=== PATIENT | female | born 1985 | race Caucasian/White ===

== ENCOUNTER 2022-02-13 08:50 | Day surgery (SDC) | payer MEDICAID ==
[~2022-02-13 08:50] MED LIST: Acetaminophen 1,000 MG in Premix Bag 1 BAG IV SCH; Albuterol 0.083% 2.5 MG/3 ML Neb Soln NEB PRN; HYDROmorphone 1 MG/ML Syringe IVPUSH PRN; Lactated Ringers 1,000 ML IV SCH; Metoclopramide 10 MG/2 ML SDV IVPUSH PRN; Morphine 2 MG/ML SYRINGE IVPUSH PRN; Naloxone 0.4 MG/ML SDV IVPUSH PRN; Ondansetron 4 MG/2 ML SDV IVPUSH PRN; Pregabalin 75 MG Cap PO SCH; Scopolamine 1.5 MG Transdermal Patch TOP ONE; Scopolamine 1.5 MG Transdermal Patch TRDERM PRN; ceFAZolin 2 GM in Premix Bag 1 BAG IV SCH; fentaNYL 50 MCG/ML SDV IVPUSH PRN
[2022-02-13] MEDS ORDERED: Sugammadex Sodium 200 MG/2 ML VIAL ONE (08:59)
[2022-02-13] MEDS ORDERED: Rocuronium Bromide 50 MG/5 ML Syringe ONE (08:59)
[2022-02-13] MEDS ORDERED: Lidocaine 2% 5 ML SDV ONE (08:59)
[2022-02-13] MEDS ORDERED: fentaNYL 100 MCG/2 ML SDV ONE (08:59)
[2022-02-13] MEDS ORDERED: Ketorolac 30 MG/ML SDV ONE (08:59)
[2022-02-13] MEDS ORDERED: Ondansetron 4 MG/2 ML SDV ONE (08:59)
[2022-02-13] MEDS ORDERED: Dexamethasone 4 MG/ML 5 ML MDV ONE (08:59)
[2022-02-13] MEDS ORDERED: Midazolam 1 MG/ML 2 ML SDV ONE (08:59)
[2022-02-13] MEDS ORDERED: Propofol 200 MG/20 ML SDV ONE (08:59)
[2022-02-13] MEDS ORDERED: Bupivacaine 0.25% 10 ML SDV ONE (10:06)
[2022-02-13] MEDS ORDERED: Bupivacaine 0.25% 30 ML SDV ONE (10:06)
[2022-02-13] MEDS ORDERED: Bupivacaine 0.5% 30 ML SDV ONE (10:12)
[2022-02-13] MEDS ORDERED: ceFAZolin 2 GM Vial ONE (10:15)
[2022-02-13] MEDS ORDERED: Water For Injection, Sterile 20 ML ONE (10:16)
[2022-02-13] MEDS ORDERED: Phenylephrine 1% 10 MG/ML SDV ONE (10:59)
== END 2022-02-13 14:13 | disposition home or self-care (01) ==
LOC: MW.SDS 08:50
PROVIDERS: ATTEND Surgery
DX: K43.9 Ventral hernia without obstruction or gangrene (principal); Z98.890 Other specified postprocedural states; Z53.31 Laparoscopic surgical procedure converted to open procedure
CPT/HCPCS: 49560; 49568; 81025; A9270; J0131; J0690; J1100; J1885; J2250; J2370; J2405; J2704; J3010; J3490; J7120